=== PATIENT | female | born 1985 | race American Indian/Alaskan Native ===

== ENCOUNTER 2017-12-05 15:14 | Outpatient (CLI) | payer BC, OTHER | END 2017-12-05 15:15 | disposition home or self-care (01) | LOC: LABHHL 15:14 | PROVIDERS: ATTEND Surgery | DX: N63.20 Unspecified lump in the left breast, unspecified quadrant (principal) | CPT/HCPCS: 88305 ==

== ENCOUNTER 2017-12-12 15:38 | Outpatient (CLI) | payer BC | END 2017-12-12 15:39 | disposition home or self-care (01) | LOC: LABHHL 15:38 | PROVIDERS: ATTEND Surgery | DX: D24.2 Benign neoplasm of left breast (principal) | CPT/HCPCS: 88305 ==

== ENCOUNTER 2018-08-25 10:17 | Outpatient (CLI) | payer BC ==
--- NOTE | 2018-09-26 15:53 | Magnetic Resonance Report ---
FINAL REPORT Bilateral Breast MRI with and without contrast History: Abnormal mammogram Technique: Axial T1, axial and sagittal T2, axial STIR, axial dynamic imaging before and after 15 cc MultiHance administration. Subtraction images were obtained. Findings: Comparison is made to prior mammogram images dated 12/01/2017, 12/05/2017, 03/01/2018 and 09/17/2017. Left breast ultrasound dated 07/17/2018 was reviewed. Breast composition: Heterogeneously dense. Background parenchymal enhancement: Minimal Right breast: An intact saline subpectoral implant is noted. No suspicious enhancement is seen in the right breast. The right axilla is unremarkable. Left breast: An intact saline subpectoral implant is noted. No suspicious enhancement is seen in the left breast. Of note, no suspicious enhancement is seen in the area of the micro clip in the subareol ar left breast. The left axilla is unremarkable. Impression: Benign (BI-RADS 2) Recommendation: Annual breast imaging is recommended.
== END 2018-08-25 10:18 | disposition home or self-care (01) ==
LOC: SPVIMAG 10:17
PROVIDERS: ATTEND Surgery
DX: N63.20 Unspecified lump in the left breast, unspecified quadrant (principal)
CPT/HCPCS: A9577; C8908; 77049

== ENCOUNTER 2021-01-15 14:50 | Outpatient (CLI) | payer BC ==
--- NOTE | 2021-01-16 09:04 | Mammography Report ---
DIGITAL SCREENING MAMMOGRAM WITH TOMOSYNTHESIS WITH CAD, 01/15/2021 CLINICAL INFORMATION / INDICATION: Routine Screening Mammography. TECHNIQUE: Digital bilateral 2D and 3D mammography with tomosynthesis was obtained in the craniocaud al and mediolateral oblique projections. Computer-Aided Detection (CAD) analysis was used for interp retation of this study. COMPARISON: Prior mammograms 12/13/2019 and 12/07/2018 FINDINGS: Breast Density: The breasts are heterogeneously dense, which may obscure small masses. No dominant mass, suspicious calcifications, or architectural distortion in either breast. There are bilateral retropectoral saline implants. There is a stable biopsy clip in the left breast. There has been no significant change compared with the prior examinations. IMPRESSION: No mammographic evidence of malignancy. Follow up recommendation: Unless otherwise clinically indicated, recommend patient return to routine screening mammography at age 38. BI-RADS Category 2: Benign. A "normal" or negative report should not discourage follow up or biopsy of a clinically significant f inding. A written summary of these findings will be mailed to the patient. The patient will be entered into a mammography reporting system which will generate a reminder letter for the patient's next appointmen t at the appropriate interval. The [employer] recommends yearly mammograms starting at age 40 and continuing as l bridgette as a woman is in good health. Breast MRI is recommended for women with an approximate 20-25% or greater lifetime risk of breast cancer, including women with a strong family history of breast or ova marlon cancer or who have been treated for Hodgkin's disease. Signer Name: Karlee Pradhan MD Signed: 01/16/2021 8:59 AM Workstation Name: [facility] [employer]
== END 2021-01-15 14:51 | disposition home or self-care (01) ==
LOC: SPVWC 14:50
PROVIDERS: ATTEND Surgery
DX: Z12.31 Encounter for screening mammogram for malignant neoplasm of breast (principal); N64.89 Other specified disorders of breast
CPT/HCPCS: 77063; 77067